=== PATIENT | female | born 1995 | race Caucasian/White ===

== ENCOUNTER 2019-04-14 13:02 | Outpatient (REF) | payer MEDICAID, SELFPAY ==
[2019-04-15 15:01] LABS: Chlamydia Result Negative; GC Result Negative; Specimen Description CERVIX
== END 2019-04-14 13:22 ==
LOC: LBN 13:02
PROVIDERS: Visit Provider Nurse Practitioner Family
DX: R10.2 Pelvic and perineal pain (principal); Z11.3 Encounter for screening for infections with a predominantly sexual mode of transmission
CPT/HCPCS: 87491; 87591; 87086

== ENCOUNTER 2019-07-07 12:01 | Outpatient (CLI) | payer MEDICAID, SELFPAY ==
[2019-07-07 12:22] LABS: Abs Immature Grans 0.01 k/cumm (0.0-0.09); Absolute Basophil Count 0.04 k/cumm (0.0-0.2); Absolute Eosinophil Count 0.16 k/cumm (0.0-0.7); Absolute Lymphocyte Count 2.63 k/cumm (1.2-3.4); Absolute Monocyte Count 0.96 k/cumm (0.11-0.7); Absolute Neutrophil Count 5.81 k/cumm (1.2-6.7); Basophils % 0.4; Eosinophils % 1.7; HCT 39.8 % (36.0-46.0); HGB 13.8 g/dL (12.0-15.5); Immature Grans % 0.1; Lymphocytes % 27.4; Mean Corp. HGB Concentration 34.7 g/dL (32.0-36.0); Mean Corpuscular Hemoglobin 32.3 pg (27.0-33.0); Mean Corpuscular Volume 93.2 fL (80-95); Mean Platelet Volume 8.9 fL (8.0-11.0); Neutrophils % 60.4; Platelet Count 343 x1000/uL (130-400); RBC 4.27 m/cumm (4.00-5.20); RBC Distribution Width 11.4 % (11.7-14.6); White Blood Cell Count 9.61 k/cumm (4.4-10.8)
[2019-07-08 11:07] LABS: Hepatitis B Surface Ag Negative (NEGAT)
[2019-07-08 11:36] LABS: HIV-1/2 Ag & Ab Screen Negative (NEGAT); Hepatitis C Ab w Rflx HCV PCR Negative (NEGAT)
[2019-07-08 16:37] LABS: Chlamydia Result Negative (Negative); GC Result Negative (Negative); Specimen Description ENDOCERVICAL
[2019-07-08 16:49] LABS: Syphilis Total Ab w/Reflex Nonreactive (Nonreactive)
== END 2019-07-07 12:21 ==
PROVIDERS: Visit Provider Nurse Practitioner Family
DX: R59.0 Localized enlarged lymph nodes (principal); Z11.3 Encounter for screening for infections with a predominantly sexual mode of transmission; Z11.4 Encounter for screening for human immunodeficiency virus [HIV]; Z11.59 Encounter for screening for other viral diseases
CPT/HCPCS: 36415; 86803; 87340; 87389; 87491; 87591; 85025; 86780

== ENCOUNTER 2019-07-11 10:28 | Outpatient (CLI) | payer MEDICAID, SELFPAY ==
--- NOTE | 2019-07-11 10:58 | DI.US_ITS ---
EXAM: US SOFT TISS EXTREMITY/GROIN CLINICAL HISTORY: LYMPHADENOPATHY, R59.1, ENLARGED TENDER LT INGUINAL NODE, PAIN WITH WALKING,? absc ess TECHNIQUE: Ultrasound performed using standard protocol. COMPARISON: No exams were available for comparison FINDINGS: There are enlarged lymph nodes in the left groin region. The largest measures 2.6 cm in greatest di mension. The nodes are hyperemic and show loss of the central fatty hilum. The findings may represe nt reactive lymph nodes related to inflammation or infection. Malignancy cannot be excluded. Correl ation is recommended.
== END 2019-07-11 10:48 ==
PROVIDERS: PCP Nurse Practitioner Family; Visit Provider Nurse Practitioner Family
DX: R59.0 Localized enlarged lymph nodes (principal); M79.605 Pain in left leg; R26.2 Difficulty in walking, not elsewhere classified
CPT/HCPCS: 76882

== ENCOUNTER 2019-08-19 13:03 | Outpatient (REF) | payer MEDICAID, SELFPAY ==
[2019-08-19 14:06] LABS: Bilirubin Negative (Negative); Blood Negative (Negative); Clarity Sl Cloudy (Clear); Glucose Negative (Negative); Ketones Negative (Negative); Leukocyte Esterase Trace (Negative); Nitrite Negative (Negative); Specific Gravity 1.015 (1.005-1.025); Urobilinogen 0.2 EU/dL (Up TO 0.2)
[2019-08-19 14:29] LABS: Bacteria Moderate HPF (Negative); Crystals Negative HPF (Negative); Epithelial Cells Many HPF (Negative); Mucus Moderate (Negative); WBC >50 HPF (0-5)
[2019-08-19 14:30] LABS: C & S Indicated? C&S Done As Ordered; Casts Negative LPF (Negative)
== END 2019-08-19 13:23 ==
LOC: LBN 13:03
PROVIDERS: PCP Nurse Practitioner Family; Visit Provider Advanced Practice Midwife
DX: R30.0 Dysuria (principal)
CPT/HCPCS: 81003; 81015; 87086

== ENCOUNTER 2019-09-20 01:46 | Emergency (ER) | payer MEDICAID, SELFPAY ==
[2019-09-20 01:49] VITALS: BP 130/76; PULSE 102; RESP 16; TEMP 36.6; O2SAT 100
--- NOTE | 2019-09-20 01:59 | NUR.NOTE ---
Pt reports she is approx 10 weeks and has vag bleeding beginning at 220 on 09/19/2019. reports blood, no clots. called OB, told to come to ED for eval. US done last week, pt reports FHR 165. US done by MD Nathan, shows FHR 167.
--- NOTE | 2019-09-20 02:06 | W.ED.GENAD ---
Discharge Plan Disposition Patient Disposition: HOME Condition: Stable Discharge Details Chief Complaint: ENLISTED AIRCREW/AERIAL OBSERVER/GUNNER Clinical Impression: Threatened miscarriage Primary Care Provider: Corinne Malave ED Provider: Hu Nathan Home Meds and New Rx's Prescriptions: No Action Plus 29 mg iron- 1 mg tablet 1 tab PO DAILY Qty: 90 RF: 4 nicotine (polacrilex) [Nicorette] 4 mg gum 4 mg BC Q2H Qty: 50 RF: 4 ondansetron HCl 8 mg tablet 8 mg PO Q8H Qty: 20 RF: 1 Discharge Instructions Instructions: Threatened Miscarriage (ED) Additional Instructions: At this time you are having a threatened miscarriage. The only time will tell if this continues. It is important to avoid any significant vigorous activity, sexual intercourse, or any trauma or irritation to the pelvic region. If the miscarriage does continue I would expect to see clots, and continued bleeding, however if the bleeding continues past 48 hours, you have worsening pain, and the bleeding becomes more severe, there is concern that there could be retained products of conception. This would indicate a need for immediate return. Please take Tylenol as needed for pain. Please drink plenty of fluids. Please contact your OB doctor in the morning. If you notice any worsening of your symptoms, or any new symptoms such as vomiting, diarrhea, fever, chills, shortness of breath, chest pain, numbness, weakness, or fainting , please return immediately to the emergency department for reevaluation. As always, it was a pleasure participating in your medical care today. Referrals: ENLISTED AIRCREW/AERIAL OBSERVER/GUNNER,[facility] [OTHER] - Medical Decision Making This is a 24-year-old female who is a G1, P0 currently 10 weeks who presents for vaginal bleeding. Bleeding started 4 hours ago. Is been associated with mild cramping. No clots. Exam demonstrates a closed cervix, minimal bleeding. Vital signs stable. Blood pressure stable. Bedside ultrasound demonstrates intact fetus, heart rate of 167 noted on M-mode, fetus is intrauterine. We will lora Rh status. Currently patient is classified as a threatened miscarriage. Will recommend close OB follow-up. No current indication for D&C or transfusion. 3 AM Rh status is Rh+. Patient remained stable. Bleeding is somewhat decreased. Recommend continued close follow-up on an outpatient basis, Tylenol as needed, pelvic rest. Diagnosis threatened miscarriage. I have extensively reviewed the treatment plan and discharge instructions with the patient and their family. I have addressed all patient concerns at this time. The patient and family was made aware of what symptoms to monitor for that would warrant a return to the emergency department. Discussed the plan with the patient and family, they demonstrate verbal understanding and agreement with our assessment and plan at this time. HPI General Date/Time Provider Initiated Documentation: 09/20/19 01:46. HPI Narrative: This is a 24-year-old female who is a G1, P0 currently 9 weeks with an unknown Rh status who presents today for vaginal bleeding. She recently had a ultrasound which demonstrated a normal fetus, normal heart rate. 4 hours ago she developed mild pelvic cramping and small amounts of vaginal bleeding. No clots. Blood was maroon. She does not have any pads, but does note that she has been staining her underwear. Difficult to confirm or determine actual amount of blood loss. Patient denies any nausea or vomiting. She denies any recent sexual trauma. No other complaints at this time. Related Data Home Medications Medication Instructions Recorded Confirmed nicotine (polacrilex) 4 mg gum 4 mg BC Q2H #50 each 08/19/19 09/20/19 vitamins with calcium 1 tab PO DAILY #90 tab 08/19/19 09/20/19 no.72-iron 29 mg-folic acid 1 mg tablet ondansetron HCl 8 mg tablet 8 mg PO Q8H #20 tab 08/30/19 09/20/19 Previous Rx's Medication Instructions Recorded nicotine (polacrilex) 4 mg gum 4 mg BC Q2H #50 each 08/19/19 vitamins with calcium 1 tab PO DAILY #90 tab 08/19/19 no.72-iron 29 mg-folic acid 1 mg tablet ondansetron HCl 8 mg tablet 8 mg PO Q8H #20 tab 08/30/19 Allergies Allergy/AdvReac Type Severity Reaction Status Date / Time amoxicillin Allergy Verified 09/12/19 15:04 oxycodone Allergy Verified 09/12/19 15:04 Penicillins Allergy Verified 09/12/19 15:04 acetaminophen [From Vicodin] AdvReac Severe vomiting Verified 09/12/19 15:04 hydrocodone [From Vicodin] AdvReac Severe vomiting Verified 09/12/19 15:04 General Stated Complaint: ENLISTED AIRCREW/AERIAL OBSERVER/GUNNER TEJAS: 3 Review of Systems All systems reviewed & are unremarkable except as noted in HPI and below PFSH Social History Smoking/Tobacco Use Status: Current-Occasional Tobacco: How many years used: 2 Quit status: quit date established Drug use: Never Do you feel safe at home: Yes Do you feel safe in your relationship?: Yes Female Reproductive History Menstrual control method: condoms History History 2 Para 0 Hx # Term Pregnancies Multiple births Hx # Pregnancies Ectopic pregnancies AB induced 2 Hx Number of Living Children AB spontaneous Exam Narrative Exam Narrative: 1.Const: Well-nourished, Well-developed, appearing stated age 2.Eyes: PERRL, no conjunctival injection, and symmetrical lids. 3.ENT: Atraumatic external nose and ears. Moist MM. Neck: Symmetric, trachea midline, No thyromegaly. 4.CVS: +S1/S2, No murmurs or gallops. Peripheral pulses 2+ and equal in all extremities. Brisk capillary refill in all extremities. 5.RESP: Unlabored respiratory effort. Clear to auscultation bilaterally. No wheezes rales or rhonchi 6.GI: Soft, Nontender/Nondistended, No hepatosplenomegaly. No guarding or rebound. Minimal suprapubic tenderness and cramping. Vaginal exam was performed with female nurse Lissett at bedside, vaginal exam demonstrates a closed cervix. Minimal bleeding. Blood is maroon color. 7.MSK: Normocephalic/Atraumatic, Extremities w/o deformity or ttp No cyanosis or clubbing, Normal movement of all extremities 8.Skin: Warm, Dry. No rashes or lesions. 9.Neuro: cook fruit II-XII grossly intact. Sensation grossly intact, no focal neurologic deficits. 10.Psych: (AAO) x3. Appropriate mood and affect Course Vital Signs Vital signs: Vital Signs Temperature 36.6 C 09/20/19 01:49 Pulse 102 H 09/20/19 01:49 Respiratory Rate 16 09/20/19 01:49 Blood Pressure 130/76 09/20/19 01:49 Pulse Oximetry 100 09/20/19 01:49 Temperature 36.6 C 09/20/19 01:49 Temperature Source Skin 09/20/19 01:49 Pulse 102 H 09/20/19 01:49 Respiratory Rate 16 09/20/19 01:49 Respiratory Effort 09/20/19 01:54 Blood Pressure 130/76 09/20/19 01:49 Blood Pressure Position Sitting 09/20/19 01:49 Pulse Oximetry 100 09/20/19 01:49 Oxygen Delivery Method Room Air 09/20/19 01:49 Oxygen Flow Rate 0 09/20/19 01:49
[2019-09-20 03:14] VITALS: PULSE 98; RESP 16; O2SAT 99
== END 2019-09-20 03:15 | disposition home or self-care (01) ==
PROVIDERS: Emergency Provider Student in an Organized Health Care Education/Training Program; PCP Nurse Practitioner Family
DX: O20.0 Threatened abortion (principal); Z3A.10 10 weeks gestation of pregnancy; Z67.20 Type B blood, Rh positive
CPT/HCPCS: 86900; 86901; 99282

== ENCOUNTER 2019-09-22 09:56 | Outpatient (CLI) | payer MEDICAID, SELFPAY ==
[2019-09-22 12:51] LABS: Kit/Specimen SENT
[2019-09-22 13:02] LABS: Abs Immature Grans 0.03 k/cumm (0.0-0.09); Absolute Basophil Count 0.03 k/cumm (0.0-0.2); Absolute Eosinophil Count 0.03 k/cumm (0.0-0.7); Absolute Lymphocyte Count 2.77 k/cumm (1.2-3.4); Absolute Monocyte Count 0.66 k/cumm (0.11-0.7); Absolute Neutrophil Count 10.01 k/cumm (1.2-6.7); Basophils % 0.2; Eosinophils % 0.2; HCT 41.5 % (36.0-46.0); HGB 14.7 g/dL (12.0-15.5); Immature Grans % 0.2 %; Lymphocytes % 20.5; Mean Corp. HGB Concentration 35.4 g/dL (32.0-36.0); Mean Corpuscular Hemoglobin 32.2 pg (27.0-33.0); Mean Corpuscular Volume 90.8 fL (80-95); Monocytes % 4.9; Platelet Count 453 x1000/uL (130-400); RBC 4.57 m/cumm (4.00-5.20); RBC Distribution Width 11.6 % (11.7-14.6); White Blood Cell Count 13.53 k/cumm (4.4-10.8)
--- NOTE | 2019-09-22 13:26 | DI.US_ITS ---
EXAM: US OB 1ST TRIMESTER CLINICAL HISTORY: VAGINAL SPOTTING/CRAMPING,Z34.90, N93.9, WET READING, TO [facility] AFTER TECHNIQUE: Ultrasound performed using standard protocol. COMPARISON: US SOFT TISS EXTREMITY/GROIN from 07/11/2019 FINDINGS: Ob ultrasound was performed utilizing 1st trimester protocol. There is a single viable intrauterine gestation with crown-rump length measurements consistent with gestational age of 10 weeks 6 days. Fe heaven cardiac activity was observed at a rate of 155 BPM.. The EDC is 04/13/2020. There is [address] in diameter presumed left corpus luteum cyst. IMPRESSION:
[2019-09-22 14:03] LABS: FREE T4 1.22 ng/dL (0.76-1.46); TSH 1.64 uIU/mL (0.36-3.74)
[2019-09-23 09:20] LABS: Hepatitis C Ab w Rflx HCV PCR Negative (Negative)
[2019-09-23 10:58] LABS: HIV-1/2 Ag & Ab Screen Negative (Negative); Hepatitis B Surface Ag Negative (Negative)
[2019-09-23 11:29] LABS: Varicella IgG Antibody Negative (See Note)
[2019-09-23 13:30] LABS: Rubella IgG Ab (UVM) Positive (See Note)
[2019-09-23 14:47] LABS: Syphilis Total Ab w/Reflex Nonreactive (Nonreactive)
== END 2019-09-22 10:16 ==
PROVIDERS: PCP Nurse Practitioner Family; Visit Provider Advanced Practice Midwife
DX: N93.9 Abnormal uterine and vaginal bleeding, unspecified (principal); Z34.91 Encounter for supervision of normal pregnancy, unspecified, first trimester; Z83.49 Family history of other endocrine, nutritional and metabolic diseases; Z36.89 Encounter for other specified antenatal screening; Z3A.10 10 weeks gestation of pregnancy
CPT/HCPCS: 36415; 86787; 86803; 86850; 86900; 86901; 87340; 87389; 76801; 84439; 84443; 85025; 86762; 86780

== ENCOUNTER 2019-09-22 14:27 | Outpatient (REF) | payer MEDICAID, SELFPAY ==
[2019-09-22 13:59] LABS: *AMPHETAMINES SCREEN URINE Negative (Negative); *BARBITURATES SCREEN URINE Negative (Negative); *BENZODIAZEPINES SCREEN URINE Negative (Negative); Cannabinoids THC POSITIVE (Negative); Cocaine Screen,Urine Negative (Negative); METHADONE URINE SCREEN Negative (Negative); OPIATES URINE SCREEN Negative (Negative)
[2019-09-22 14:02] LABS: Tricyclic Antidepressants Negative (Negative)
[2019-09-25 10:19] LABS: Buprenorphine Negative
== END 2019-09-22 14:47 ==
LOC: LBN 14:27
PROVIDERS: PCP Nurse Practitioner Family; Visit Provider Advanced Practice Midwife
DX: Z34.91 Encounter for supervision of normal pregnancy, unspecified, first trimester (principal)
CPT/HCPCS: 80307

== ENCOUNTER 2019-10-09 14:52 | Outpatient (REF) | payer MEDICAID, SELFPAY ==
[2019-10-10 14:53] LABS: Chlamydia Result Negative (Negative); GC Result Negative (Negative)
== END 2019-10-09 15:12 ==
LOC: LBN 14:52
PROVIDERS: PCP Nurse Practitioner Family; Visit Provider Advanced Practice Midwife
DX: Z34.91 Encounter for supervision of normal pregnancy, unspecified, first trimester (principal); N39.0 Urinary tract infection, site not specified; Z11.3 Encounter for screening for infections with a predominantly sexual mode of transmission
CPT/HCPCS: 87491; 87591; 87086

== ENCOUNTER 2019-11-14 02:05 | Outpatient (CLI) | payer MEDICAID, SELFPAY ==
--- NOTE | 2019-11-14 13:30 | DI.US_ITS ---
EXAM: US OB 2-3 TRIMESTER CLINICAL HISTORY: 18-week anatomy survey, Z34.90. TECHNIQUE: Transabdominal obstetrical ultrasound performed. COMPARISON: US OB 1ST TRIMESTER from 09/22/2019 FINDINGS: There is a single living intrauterine gestation. Estimated sonographic age is 18 weeks 5 days. No f etal or placental abnormalities are identified. IMPRESSION: 1. Single live intrauterine gestation as above. 2. Normal anatomic survey. DATA REPOSITORY:
== END 2019-11-14 02:25 ==
PROVIDERS: PCP Nurse Practitioner Family; Visit Provider Advanced Practice Midwife
DX: Z34.92 Encounter for supervision of normal pregnancy, unspecified, second trimester (principal); Z3A.18 18 weeks gestation of pregnancy
CPT/HCPCS: 76805

== ENCOUNTER 2019-11-14 13:19 | Outpatient (CLI) | payer MEDICAID, SELFPAY ==
[2019-11-17 11:50] LABS: AFP 72.2 ng/mL; GA used in risk estimate Dates estimate; IVF Pregnancy No; Initial or repeat testing Initial testing; Insulin dependent diabetes No; Maternal Weight 122 lbs; Number of Fetuses 1; Physician Phone Number 802-748-7300; Prev Pregnancy w/NTD No; RECOMMENDED FOLLOW UP None.; Results Summary Normal risk
== END 2019-11-14 13:39 ==
PROVIDERS: PCP Nurse Practitioner Family; Visit Provider Advanced Practice Midwife
DX: Z34.92 Encounter for supervision of normal pregnancy, unspecified, second trimester (principal); Z36.89 Encounter for other specified antenatal screening
CPT/HCPCS: 36415; 82105

== ENCOUNTER 2020-01-23 10:44 | Outpatient (REF) | payer MEDICAID, SELFPAY ==
[2020-01-23 11:22] LABS: Glucose,1 Hr (Glucola) 109 mg/dL (80-140); HCT 36.1 % (36.0-46.0); HGB 12.4 g/dL (12.0-15.5); Mean Corp. HGB Concentration 34.3 g/dL (32.0-36.0); Mean Corpuscular Hemoglobin 32.5 pg (27.0-33.0); Mean Corpuscular Volume 94.8 fL (80-95); Mean Platelet Volume 9.5 fL (8.0-11.0); Platelet Count 397 x1000/uL (130-400); RBC 3.81 m/cumm (4.00-5.20); RBC Distribution Width 11.7 % (11.7-14.6); White Blood Cell Count 16.24 k/cumm (4.4-10.8)
== END 2020-01-23 11:04 ==
LOC: LBN 10:44
PROVIDERS: PCP Nurse Practitioner Family; Visit Provider Advanced Practice Midwife
DX: Z34.93 Encounter for supervision of normal pregnancy, unspecified, third trimester (principal)
CPT/HCPCS: 82950; 85027

== ENCOUNTER 2020-03-16 01:44 | Outpatient (CLI) | payer MEDICAID, SELFPAY ==
--- NOTE | 2020-03-16 14:30 | DI.US_ITS ---
EXAM: US OB YEISON WEIGHT CLINICAL HISTORY: size greater than dates, , Z34.90 TECHNIQUE: Ultrasound performed using standard protocol. COMPARISON: US US OB 2-3 TRIMESTER from 11/14/2019 FINDINGS: Ob ultrasound was performed utilizing 3rd trimester protocol. biometry is consistent with gest ational age of 36 weeks 3 days and an EDC of April 10, 2020. Estimated weight is 2930 grams which is at the 70th percentile for predicted gestational age. Placenta is anterior with no evidence of placenta previa. heart rate noted at 139 BPM. The am niotic fluid index is 21 and there is visually a mildly increased quantity of amniotic fluid. IMPRESSION: DATA REPOSITORY:
== END 2020-03-16 02:04 ==
PROVIDERS: PCP Nurse Practitioner Family; Visit Provider Advanced Practice Midwife
DX: O26.843 Uterine size-date discrepancy, third trimester (principal); Z3A.36 36 weeks gestation of pregnancy
CPT/HCPCS: 76816

== ENCOUNTER 2020-03-22 16:40 | Outpatient (REF) | payer MEDICAID, SELFPAY ==
[2020-03-22 17:12] LABS: *AMPHETAMINES SCREEN URINE Negative (Negative); *BARBITURATES SCREEN URINE Negative (Negative); *BENZODIAZEPINES SCREEN URINE Negative (Negative); Cannabinoids THC POSITIVE (Negative); Cocaine Screen,Urine Negative (Negative); METHADONE URINE SCREEN Negative (Negative); OPIATES URINE SCREEN Negative (Negative)
[2020-03-22 17:13] LABS: Tricyclic Antidepressants Negative (Negative)
[2020-03-25 12:27] LABS: Buprenorphine Negative; Norbuprenorphine Negative
== END 2020-03-22 17:00 ==
LOC: LBN 16:40
PROVIDERS: PCP Nurse Practitioner Family; Visit Provider Advanced Practice Midwife
DX: Z34.90 Encounter for supervision of normal pregnancy, unspecified, unspecified trimester (principal)
CPT/HCPCS: 80307; 87081

== ENCOUNTER 2020-04-01 13:57 | Inpatient (IN) | payer MEDICAID, SELFPAY ==
[2020-04-01 14:49] LABS: Abs Immature Grans 0.14 10^3/uL (0.0-0.06); Absolute Basophil Count 0.05 10^3/uL (0.0-0.2); Absolute Eosinophil Count 0.09 10^3/uL (0.0-0.7); Absolute Lymphocyte Count 2.17 10^3/uL (1.2-3.4); Absolute Monocyte Count 1.03 10^3/uL (0.1-0.8); Absolute Neutrophil Count 9.51 10^3/uL (1.2-6.7); Basophils % 0.4; Eosinophils % 0.7; HCT 31.2 % (36.0-46.0); HGB 10.6 g/dL (11.2-15.7); Immature Grans % 1.1; Lymphocytes % 16.7; MCH 30.5 pg (27.0-33.0); MCV 89.7 fL (80-95); MPV 9.3 fL (8.0-11.0); Monocytes % 7.9; Neutrophils % 73.2; Platelet Count 335 10^3/uL (130-400); RBC 3.48 10^6/uL (3.93-5.22); RDW 11.8 % (11.7-14.6); RDW-SD 37.6 fL; WBC 12.99 10^3/uL (4.4-10.8)
[2020-04-01] MEDS: Normal Saline Flush 10 ML SYR IVP (16:15)
[2020-04-02] MEDS: Lactated Ringers 1,000 ML 125 ML IV ×2 (00:19→05:46)
[2020-04-02] MEDS: Normal Saline Flush 10 ML SYR IVP (00:26)
[2020-04-02] MEDS: Oxytocin/Normal Saline 30 UNITS/500 ML BAG IV (01:57)
[2020-04-02] MEDS: Bupivacaine 0.25% Pres-Free 30 ML VIAL (05:24)
[2020-04-02] MEDS: fentaNYL 100 MCG/2 ML VIAL (05:41)
[2020-04-02] MEDS: FentaNYL/ROPIvacaine 2 mcg/ml and 0.1% 200 ML CADD Cassette EP (05:45)
[2020-04-02 08:26] LABS: COVID-19 RT-PCR UVMMC Result Negative (Negative)
[2020-04-02] MEDS: Ibuprofen 600 MG TAB PO ×2 (17:15→23:52)
[2020-04-03] MEDS: Ibuprofen 600 MG TAB PO ×2 (07:24→18:17)
[2020-04-03 18:16] VITALS: BP 123/84; PULSE 92; RESP 16; TEMP 36.7; O2SAT 99
[2020-04-03] MEDS: Docusate Sodium 100 MG CAP PO (18:26)
== END 2020-04-03 19:49 | disposition home or self-care (01) | DRG 806 ==
PROVIDERS: Admitting Provider Advanced Practice Midwife; PCP Nurse Practitioner Family; Visit Provider Advanced Practice Midwife
DX: O42.02 Full-term premature rupture of membranes, onset of labor within 24 hours of rupture (principal); O99.324 Drug use complicating childbirth; Z37.0 Single live birth; O99.824 Streptococcus B carrier state complicating childbirth; O99.344 Other mental disorders complicating childbirth; F41.9 Anxiety disorder, unspecified; Z88.0 Allergy status to penicillin; Z3A.38 38 weeks gestation of pregnancy; Z30.013 Encounter for initial prescription of injectable contraceptive; Z67.20 Type B blood, Rh positive; F12.90 Cannabis use, unspecified, uncomplicated
CPT/HCPCS: 86850; 86900; 86901; U0003; 80202; 85025; J0595; J1050; J3010; J3370

== ENCOUNTER 2020-04-04 13:25 | Outpatient (CLI) | payer MEDICAID, SELFPAY ==
[2020-04-04] MEDS: Varicella Virus Vaccine (Live) 0.5 ML SC (13:59)
== END 2020-04-04 13:45 ==
PROVIDERS: PCP Nurse Practitioner Family; Visit Provider Advanced Practice Midwife
DX: Z23 Encounter for immunization (principal)
CPT/HCPCS: 90471

== ENCOUNTER 2021-03-05 05:54 | Emergency (ER) | payer MEDICAID, SELFPAY ==
[2021-03-05 05:56] VITALS: BP 123/91; PULSE 87; RESP 16; TEMP 37.1; O2SAT 100
--- NOTE | 2021-03-05 06:08 | ED.GENADUL_ITS ---
Discharge Plan Disposition Patient Disposition: HOME Condition: Good Discharge Details Clinical Impression: Dental caries Primary Care Provider: Corinne Malave ED Provider: Hu Nathan Home Meds and New Rx's Prescriptions: New clindamycin HCl [Cleocin HCl] 150 mg capsule 450 mg PO TID 7 Days Qty: 63 RF: 0 Continued medroxyprogesterone [Depo-Provera] 150 mg/mL syringe 150 mg IM [id number] Qty: 1 RF: 5 sertraline 25 mg tablet 25 mg PO DAILY Qty: 30 RF: 2 Discharge Instructions Instructions: Dental Caries (ED) Additional Instructions: At this time you have evidence of a dental infection. Please antibiotics as directed. Please make sure you are taking a yogurt with live culture like activia to prevent any diarrhea. If you notice any worsening of your symptoms, or any new symptoms such as vomiting, diarrhea, fever, chills, shortness of breath, chest pain, numbness, weakness, or fainting , please return immediately to the emergency department for reevaluation. Please follow up with your primary care provider as soon as possible for reassessment and reevaluation. As always, it was a pleasure participating in your medical care today. Referrals: Corinne Malave [Primary Care Provider] - Medical Decision Making Pleasant 25-year-old female presents for dental pain in the right lower tooth. Patient states she has had issues with this tooth for the last 2 years however over the last week it is notably worsened. She does have a dentist already that she is seeing for this. She denies fever or chills. She has been taking Tylenol and Motrin. No other complaints at this time. No difficulty s wallowing, drinking or controlling secretions. She denies any swelling. Exam demonstrates notable dental caries in the posterior right lower molars. No evidence of other swelling, abscess or other abnormality. No fever chills or tachycardia. Vital signs stable. Symptoms consistent with pulpitis and dental caries. Will give antibiotic clindamycin for treatment as she does have a notable penicillin allergy. Recommend continue Tylenol and Motrin. Did offer dental block however patient refused this. Recommend close follow-up with dentist. I have extensively reviewed the treatment plan and discharge instructions with the patient. I have addressed all patient concerns at this time. The patient was made aware of what symptoms to monitor for that would warrant a return to the emergency department. Discussed the plan with the patient, they demonstrate verbal understanding and agreement with our assessment and plan at this time. The documentation in this chart was dictated using [employer] dictation software. Please excuse any dictation errors. HPI General Date/Time Provider Initiated Documentation: 03/05/21 06:01 . HPI Narrative: Pleasant 25-year-old female presents for dental pain in the right lower tooth. Patient states she has had issues with this tooth for the last 2 years however over the last week it is notably worsened. She does have a dentist already that she is seeing for this. She denies fever or chills. She has been taking Tylenol and Motrin. No other complaints at this time. No difficulty swallowing, drinking or controlling secretions. She denies any swelling. Related Data Home Medications Medication Instructions Recorded Confirmed medroxyprogesterone 150 mg/mL 150 mg IM [id number] #1 ml 12/28/20 03/05/21 intramuscular syringe sertraline 25 mg tablet 25 mg PO DAILY #30 tab 03/03/21 03/05/21 clindamycin HCl [Cleocin HCl] 450 mg PO TID 7 Days #63 cap 03/05/21 Previous Rx's Medication Instructions Recorded medroxyprogesterone 150 mg/mL 150 mg IM [id number] #1 ml 12/28/20 intramuscular syringe sertraline 25 mg tablet 25 mg PO DAILY #30 tab 03/03/21 clindamycin HCl [Cleocin HCl] 450 mg PO TID 7 Days #63 cap 03/05/21 Allergies Allergy/AdvReac Type Severity Reaction Status Date / Time amoxicillin Allergy hives, Verified 03/05/21 06:01 throat swelling oxycodone Allergy Verified 03/05/21 06:01 Penicillins Allergy hives, Verified 03/05/21 06:01 throat swelling acetaminophen [From Vicodin] AdvReac Severe vomiting Verified 03/05/21 06:01 hydrocodone [From Vicodin] AdvReac Severe vomiting Verified 03/05/21 06:01 Bees Allergy Intermediate Uncoded 03/05/21 06:01 General Stated Complaint: DentalOral TEJAS: 5 Review of Systems All systems reviewed & are unremarkable except as noted in HPI and below [facility] Medical History Anxiety medications in the past, discontinued due to side effects. counseling x 4 years Anxiety History of ovarian cyst Marijuana smoker Sinus headache Tobacco dependence Uses contraception Couple until 08/2021 change to Josey. 12/2020 resumed Depo Family History Father Diabetes Hyperlipidemia Grandmother Lung cancer Maternal - Paternal Cousin Diabetes type 1 Paternal Grandfather Diabetes Type 1 Maternal Grandmother Hyperthyroidism Social History Smoking/Tobacco Use Status: Current-Occasional Tobacco Type: cigarettes Tobacco: How many years used: 2 Quit status: quit date established Smoking risk assessment performed?: Yes Alcohol Intake: current Alcohol Intake frequency: 0-2 drinks per day Alcohol type: wine Drug use: Daily Substance use type: marijuana Details: marijuana, using for nausea in . Reports no longer using. Do you feel safe at home: Yes Do you feel safe in your relationship?: Yes Female Reproductive History Menstrual control method: condoms History History 3 Para 1 Hx # Term Pregnancies 1 Multiple births 0 Hx # Pregnancies 0 Ectopic pregnancies 0 AB induced 2 Hx Number of Living Children 1 AB spontaneous 0 Past Pregnancies Del. Date GA/Weeks # Outcome Route Wgt Sex Labor Lgth Anesthes ia Location [facility] 04/02/20 No Successful vaginal 3316.894 g Male 21 hours, per patient regional other Sam Laurent Delivery Date: 04/02/20 Pt received epidural, with pitocin to augment labor. Jarred. Intact perineum. [place] Gallegos Exam Narrative Exam Narrative: 1.Const: Well-nourished, Well-developed, appearing stated age 2.Eyes: PERRL, no conjunctival injection, and symmetrical lids. 3.ENT: Atraumatic external nose and ears. Moist MM. Neck: Symmetric, trachea midline, No thyromegaly. Notable dental caries in the right lower posterior molars. No evidence of periapical abscess. No evidence of Ludewig's angina, tonsillar swelling, oropharyngeal compromise. 4.CVS: +S1/S2, No murmurs or gallops. Peripheral pulses 2+ and equal in all extremities. Brisk capillary refill in all extremities. 5.RESP: Unlabored respiratory effort. Clear to auscultation bilaterally. No wheezes rales or rhonchi 6.GI: Soft, Nontender/Nondistended, No hepatosplenomegaly. No guarding or rebound. 7.MSK: Normocephalic/Atraumatic, Extremities w/o deformity or ttp No cyanosis or clubbing, Normal movement of all extremities 8.Skin: Warm, Dry. No rashes or lesions. 9.Neuro: house detective II-XII grossly intact. Sensation grossly intact, no focal neurolog ic deficits. 10.Psych: (AAO) x3. Appropriate mood and affect Course Vital Signs Vital signs: Vital Signs Temperature 37.1 C 03/05/21 05:56 Pulse 87 03/05/21 05:56 Respiratory Rate 16 03/05/21 05:56 Blood Pressure 123/91 H 03/05/21 05:56 Pulse Oximetry 100 03/05/21 05:56 Temperature 37.1 C 03/05/21 05:56 Temperature Source Skin 03/05/21 05:56 Pulse 87 03/05/21 05:56 Respiratory Rate 16 03/05/21 05:56 Respiratory Effort Non-Labored 03/05/21 06:01 Blood Pressure 123/91 H 03/05/21 05:56 Blood Pressure Position Sitting 03/05/21 05:56 Pulse Oximetry 100 03/05/21 05:56 Oxygen Delivery Method Room Air 03/05/21 05:56 Oxygen Flow Rate 0 03/05/21 05:56 Pain Level 9 03/05/21 06:02
[2021-03-05] MEDS: Clindamycin 150 MG CAP, 12 CAPS/BTL 450 MG PO (06:18)
== END 2021-03-05 06:20 | disposition home or self-care (01) ==
LOC: ER 06:13
PROVIDERS: Emergency Provider Student in an Organized Health Care Education/Training Program; PCP Nurse Practitioner Family
DX: K02.9 Dental caries, unspecified (principal)
CPT/HCPCS: 99283

== ENCOUNTER 2021-09-09 16:09 | Outpatient (REF) | payer MEDICAID, SELFPAY ==
--- NOTE | 2021-09-09 15:40 | PAPFT_PTH ---
PATIENT: Lily Bennett LOC: [facility] U#:[id number] AGE/SX: 26/F ROOM: RE09/09/[address]: COCO Maza : 1995 BED: DIS: 09/09/2021 SPEC #: [id number] RECD: 09/09/21 18:23 STATUS: NIURKA REQ #: [id number] SHANTI: 09/09/21 15:[address]: Sariah Porras DEPT: [facility] Cytology RECD BY: Rica Alvarez ENTERED: 09/09/21 18:24 SP TYPE: PAPFT OTHR DR: Corinne Malave Tissues: 1 - CX/ENDOCX FOR PAP SMEARS Procedures: PAP THIN PREP/[facility] Screening Comments: [id number]
== END 2021-09-09 16:10 | disposition home or self-care (01) ==
LOC: LBN 16:09
PROVIDERS: PCP Nurse Practitioner Family; Visit Provider Nurse Practitioner Family
DX: Z12.4 Encounter for screening for malignant neoplasm of cervix (principal)
CPT/HCPCS: 88142

== ENCOUNTER 2021-10-24 14:42 | Emergency (ER) | payer MEDICAID, SELFPAY ==
[2021-10-24 15:15] VITALS: BP 134/85; PULSE 89; RESP 16; O2SAT 99
--- NOTE | 2021-10-24 16:00 | DI.RAD_ITS ---
Exam(s) XR KNEE RT 3V AP,LAT,DEMARIO EXAM: XR KNEE RT 3V AP,LAT,DEMARIO CLINICAL HISTORY: R knee pain, r/o fx/effusion. TECHNIQUE: 2D digital imaging was performed. COMPARISON: CR RIGHT KNEE COMPLETE from 11/13/2017 FINDINGS: There is no evidence of fracture or joint effusion. Previously described joint effusion seen on x-ra ys November 2017 no longer seen. The joint exhibits normal height. No degenerative changes. No fractu res. No osteophytes. IMPRESSION: No significant radiographic findings. DATA REPOSITORY: RADIATION DOSE DELIVERED:
--- NOTE | 2021-10-24 16:09 | W.ED.GENAD ---
Discharge Plan Disposition Patient Disposition: HOME Condition: Stable Discharge Details Clinical Impression: Right knee sprain, Chronic pain of right knee Primary Care Provider: Corinne Malave ED Provider: Raya Edmondson Home Meds and New Rx's Prescriptions: Continued loratadine 10 mg tablet 10 mg PO DAILY 0RF medroxyprogesterone [Depo-Provera] 150 mg/mL syringe 150 mg IM ONCE Qty: 1 0RF medroxyprogesterone [Depo-Provera] 150 mg/mL syringe 150 mg IM [id number] Qty: 1 5RF sertraline 25 mg tablet 50 mg PO DAILY 0RF Rx Instructions: Patient is now taking 50 mg meloxicam 15 mg Tablet 15 mg PO DAILY 0RF omeprazole 10 mg Capsule,Delayed Release(Dr/Ec) 10 mg PO DAILY 0RF Discharge Instructions Instructions: Knee Sprain (ED), Knee Pain (ED) Additional Instructions: Rest, ice, and elevate the affected area as much as possible. Alternate tylenol and your meloxicam or motrin as needed and directed for pain. Take the tramadol for pain not relieved with Tylenol or NSAIDs such as motrin or meloxicam. Follow-up with your scheduled appointment with orthopedics on October 31. Return immediately to the emergency department if you develop any worsening or new concerning symptoms. Referrals: Brock Mo MD [ [facility] STAFF PHYSICIAN] - Discharge Data Discharge Date/Time-TO BE ENTERED AT DEPARTURE: 10/24/21 17:24 Discharge Physician: Raya Edmondson Medical Decision Making 26-year-old female with history of longstanding repetitive right knee injuries mostly secondary to sports as a teenager with most recent injury 2 months ago when hit by a dog against her lateral knee causing increased pain mostly in her medial knee presents for persistent ongoing R knee pain for the past 2 months. Patient states she had seen Dr. Mo approximately 4 years ago for this complaint and was diagnosed with a potential meniscal tear and advised that she may need surgery. Review of records did not note any orthopedic notes but revealed that she was seen in the ED approximately 4 years ago and diagnosed with a meniscal tear and referred to orthopedics. She denies any relief with meloxicam prescribed by her PCP recently. She has pain in the R knee with valgus and varus stress, limited ability to test Samantha's test secondary to pain but no obvious clicking noted. No obvious ligamentous laxity. Neurovascularly intact. There is no evidence of trauma or cellulitis. History/presentation does not appear c/w dvt, septic arthritis. Will refer for x-rays. She declined pain medication here. X-rays reviewed and unremarkable. Patient has a knee brace but she states this has not been helping and she is concerned about inability to sleep at night and pain causing her difficulty to ambulate. We will place an Joseph wrap and provide with crutches. We will give 2 tabs of tramadol to go to take before bed to help with sleep over the next couple nights. She is advised to follow-up with her scheduled appointment with orthopedics next week. Usual and customary return precautions given prior to discharge. Medical Records Medical records reviewed: Yes I reviewed the patient's medical records. Imaging Data Radiologic Study: Radiologist's impression: XR KNEE RT 3V AP,LAT,DEMARIO CLINICAL HISTORY: ? R knee pain, r/o fx/effusion. ? TECHNIQUE:? 2D digital imaging was performed. COMPARISON:? CR RIGHT KNEE COMPLETE from 11/13/2017 FINDINGS: There is no evidence of fracture or joint effusion.? Previously described joint effusion seen on x-rays November 2017 no longer seen.? The joint exhibits normal height.? No degenerative changes.? No fractures.? No osteophytes. IMPRESSION: No significant radiographic findings. HPI General Mode of arrival: wheelchair. Date/Time Provider Initiated Documentation: 10/24/21 15:27. Limitations to Documentation: no limitations. Information obtained by: patient. HPI Narrative: Patient is a 26-year-old female with a history of longstanding right knee pain with multiple previous injuries related to sports presents the ED with complaint of worsening right knee pain for the past 2 months. Patient states she saw Dr. Mo in the office 4 years ago and was diagnosed with a possible MCL tear and was advised that she may need surgery. Patient states she has not been able to follow-up again due to busy schedule and taking care of her toddler. She states 2 months ago her father's dog hit the lateral aspect of her right knee which caused strain and pain on the medial aspect. She states ongoing since then she has had right medial and lateral knee pain which is worse when fully extended and with bending. She states she wears a brace mostly throughout the day and at nighttime. She saw her PCP for this complaint recently and was given meloxicam which she has been taking without relief. She denies any new injury in the past few days. She denies any fever, calf pain or redness of the knee. Related Data Home Medications Medication Instructions Recorded Confirmed medroxyprogesterone 150 mg/mL 150 mg IM [id number] #1 ml 12/28/20 10/24/21 intramuscular syringe (Depo-Provera) loratadine 10 mg tablet 10 mg PO DAILY 03/22/21 10/24/21 sertraline 25 mg tablet 50 mg PO DAILY tab 06/13/21 10/24/21 meloxicam 15 mg tablet 15 mg PO DAILY 10/24/21 10/24/21 omeprazole 10 mg capsule,delayed 10 mg PO DAILY 10/24/21 10/24/21 release Previous Rx's Medication Instructions Recorded medroxyprogesterone 150 mg/mL 150 mg IM [id number] #1 ml 12/28/20 intramuscular syringe (Depo-Provera) Allergies Allergy/AdvReac Type Severity Reaction Status Date / Time amoxicillin Allergy hives, Verified 10/24/21 15:23 throat swelling oxycodone Allergy Verified 10/24/21 15:23 Penicillins Allergy hives, Verified 10/24/21 15:23 throat swelling acetaminophen [From Vicodin] AdvReac Severe vomiting Verified 10/24/21 15:23 hydrocodone [From Vicodin] AdvReac Severe vomiting Verified 10/24/21 15:23 Bees Allergy Intermediate Uncoded 10/24/21 15:23 General Stated Complaint: Orthopedic TEJAS: 4 Review of Systems All systems reviewed & are unremarkable except as noted in HPI and below Constitutional Constitutional: Reports as per HPI, Denies chills and Denies fever(s) Eyes Eyes: Denies blurry vision ENT Ears, Nose, Mouth, and Throat: Denies dizziness, Denies sore throat and Denies throat swelling Cardiovascular Cardiovascular: Denies chest pain and Denies dyspnea Respiratory Respiratory: Denies cough and Denies dyspnea Gastrointestinal Gastrointestinal: Denies abdominal pain, Denies diarrhea and Denies vomiting Genitourinary Genitourinary: Denies hematuria and Denies dysuria Musculoskeletal Musculoskeletal: Denies back pain, Denies numbness and Reports other (R knee pain) Integumentary/Breasts Skin/Breast: Denies lesions and Denies rash Neurologic Neurologic: Denies dizziness, Denies localized weakness and Denies numbness Allergic/Immunologic Allergic/Immunologic: Denies throat swelling PFSH All Active Problems (Updated 10/24/21 @ 17:15 by Raya Edmondson DO) Right knee sprain (Acute) Chronic pain of right knee (Acute) Irregular intermenstrual bleeding (Acute) 12/28/20. s/p DepoProvera #1. daily bleeding requiring tampon. Dental caries (Acute) Uses contraception (Acute) Couple until 08/2021 change to Josey. 12/2020 resumed Depo Anxiety (Chronic) Sinus headache (Acute) Anemia (Chronic) History of ovarian cyst (Acute) Anxiety (Chronic) medications in the past, discontinued due to side effects. counseling x 4 years Marijuana smoker (Acute) Tobacco dependence (Acute) Medical History Anxiety medications in the past, discontinued due to side effects. counseling x 4 years Anxiety History of ovarian cyst Marijuana smoker Sinus headache Tobacco dependence Uses contraception Couple until 08/2021 change to Josey. 12/2020 resumed Depo Family History Father Diabetes Hyperlipidemia Grandmother Lung cancer Maternal - Paternal Cousin Diabetes type 1 Paternal Grandfather Diabetes Type 1 Maternal Grandmother Hyperthyroidism Social History (Updated 04/22/21 @ 22:36 by Georgia Gallegos MD) Smoking/Tobacco Use Status: Former Tobacco Use Tobacco: How many years used: 2 Quit status: quit date established Smoking risk assessment performed?: Yes Alcohol Intake: current Alcohol Intake frequency: 0-2 drinks per day Alcohol type: wine Drug use: Occasionally Substance use type: marijuana Details: marijuana, using for nausea in . Reports no longer using. Household members: children and other Details: Son Jarred. Shares custody with his father Ibrahima 2x/week Number of Children: 1 current occupation: not working so she can be with her son. Do you feel safe at home: Yes Do you feel safe in your relationship?: Yes Female Reproductive History Menstrual control method: condoms History History 3 Para 1 Hx # Term Pregnancies 1 Multiple births 0 Hx # Pregnancies 0 Ectopic pregnancies 0 AB induced 2 Hx Number of Living Children 1 AB spontaneous 0 Past Pregnancies Del. Date GA/Weeks # Outcome Route Wgt Sex Labor Lgth Anesthesia Location Prov Complic 04/02/20 No Successful vaginal 3316.894 g Male 21 hours, per patient regional other Sam Laurent Delivery Date: 04/02/20 Last Updated by: Georgia Gallegos M.D. Pt received epidural, with pitocin to augment labor. Jarred. Intact perineum. Exam Const General: cooperative, healthy appearing and no acute distress Orientation: alert, awake and oriented x3 HENMT Head: normal to inspection Mouth: oral mucosae normal Eyes General: appearance normal, both eyes and all related structures Neck Neck: normal visual inspection Resp Effort & Inspection: normal respiratory effort and able to speak in complete sentences Cardio Rate: regular rate Skin General skin exam: no rashes or lesions noted Neuro General: patient alert, patient awake and patient oriented x3 Motor: muscle tone normal throughout Extrem Other: Pain in right knee with valgus and varus stress. Negative anterior/posterior drawer test. Pain with Samantha's test b/l but no obvious click noted and test limited due to pain. There does appears to be some clicking in the knee noted with flexion and extension. There is no obvious ligamentous laxity noted on exam. No tenderness to palpation to right calf. There is no edema or erythema noted to the right knee. Right DP/PT pulses intact. Psych Appearance: grossly normal Affect: normal affect Course Vital Signs Vital signs: Vital Signs Pulse 89 10/24/21 15:15 Respiratory Rate 16 10/24/21 15:15 Blood Pressure 134/85 10/24/21 15:15 Pulse Oximetry 99 10/24/21 15:15 Pulse 89 10/24/21 15:15 Respiratory Rate 16 10/24/21 15:15 Blood Pressure 134/85 10/24/21 15:15 Blood Pressure Position Sitting 10/24/21 15:15 Pulse Oximetry 99 10/24/21 15:15 Oxygen Delivery Method Room Air 10/24/21 15:15 Oxygen Flow Rate 0 10/24/21 15:15 Pain Level 8 10/24/21 15:15
== END 2021-10-24 17:24 | disposition home or self-care (01) ==
PROVIDERS: Emergency Provider Physician Assistant; PCP Nurse Practitioner Family
DX: S83.8X1A Sprain of other specified parts of right knee, initial encounter (principal); W54.1XXA Struck by dog, initial encounter; G89.18 Other acute postprocedural pain
CPT/HCPCS: 73562; 81025; 99283

== ENCOUNTER 2021-10-31 09:26 | Outpatient (CLI) | payer MEDICAID, SELFPAY ==
--- NOTE | 2021-10-31 09:15 | DI.RAD_ITS ---
Exam(s) XR KNEES MERCHANT ONLY EXAM: XR KNEES MERCHANT ONLY INDICATION: pain. COMPARISON: CR XR KNEE RT 3V AP,LAT,DEMARIO from 10/24/2021 TECHNIQUE: 2D digital imaging was performed. FINDINGS: Single Merchant view. Patellofemoral joint space is well maintained. No periarticular spurring. No evidence of prepatellar bursitis. DATA REPOSITORY: RADIATION DOSE DELIVERED:
== END 2021-10-31 09:27 | disposition home or self-care (01) ==
LOC: DIORS 09:26
PROVIDERS: PCP Nurse Practitioner Family; Referring Provider Nurse Practitioner Family; Visit Provider Physician Assistant Surgical
DX: M25.561 Pain in right knee; S83.094A Other dislocation of right patella, initial encounter; X58.XXXA Exposure to other specified factors, initial encounter
CPT/HCPCS: 73565

== ENCOUNTER 2021-11-14 00:48 | Outpatient (CLI) | payer MEDICAID, SELFPAY ==
--- NOTE | 2021-11-14 06:30 | DI.MRI_ITS ---
Exam(s) MR LOWER JOINT RT WO EXAM: MR LOWER JOINT RT WO CLINICAL HISTORY: pain,sprain,closed dislocation rt patella,m25.561,s83.91xa,s83.004a. TECHNIQUE: Multiplanar multisequence MRI was performed. COMPARISON: CR RIGHT KNEE COMPLETE from 11/13/2017 CR XR KNEE RT 3V AP,LAT,DEMARIO from 10/24/2021 CR XR KNEES MERCHANT ONLY from 10/31/2021 FINDINGS: BONES: There is no fracture or contusion pattern. JOINTS: Articular cartilage is unremarkable. Tiny effusion is present. TENDONS: Extensor mechanism: Unremarkable. Medial retinaculum: Unremarkable. Lateral retinaculum: Unremarkable. Popliteus: Unremarkable. MUSCLES: Unremarkable. MENISCI: The medial meniscus is unremarkable. The lateral meniscus is unremarkable. SOFT TISSUES: Unremarkable. LIGAMENTS: Anterior Cruciate: Question of mild edema. No evidence of focal tear. Posterior Cruciate: Unremarkable. Medial Collateral:Unremarkable. Lateral Collateral: Unremarkable. OTHER: Mild lateral patellar tilt and lateral deviation, IMPRESSION: Question of ACL sprain. Mild lateral patellar deviation in lateral patellar tilt. No cartilage defect. Retinacula appear in tact. DATA REPOSITORY:
== END 2021-11-14 01:08 ==
PROVIDERS: PCP Nurse Practitioner Family; Visit Provider Student in an Organized Health Care Education/Training Program
DX: M25.561 Pain in right knee (principal); S83.8X1A Sprain of other specified parts of right knee, initial encounter; M25.461 Effusion, right knee; M22.8X1 Other disorders of patella, right knee; G89.29 Other chronic pain
CPT/HCPCS: 73721

== ENCOUNTER 2022-10-27 10:12 | Outpatient (REF) | payer MEDICAID, SELFPAY ==
[2022-10-27 10:52] LABS: Abs Immature Grans 0.01 10^3/uL (0.0-0.06); Absolute Basophil Count 0.04 10^3/uL (0.0-0.2); Absolute Eosinophil Count 0.23 10^3/uL (0.0-0.7); Absolute Lymphocyte Count 1.91 10^3/uL (1.2-3.4); Absolute Monocyte Count 0.41 10^3/uL (0.1-0.8); Absolute Neutrophil Count 3.42 10^3/uL (1.2-6.7); Basophils % 0.7; Eosinophils % 3.8; HCT 41.3 % (36.0-46.0); Immature Grans % 0.2; Lymphocytes % 31.7; MCH 30.7 pg (27.0-33.0); MCHC 33.9 % (32.0-36.0); MCV 91 fL (80-95); MPV 9.5 fL (8.0-11.0); Monocytes % 6.8; Neutrophils % 56.8; Platelet Count 420 10^3/uL (130-400); RBC 4.56 10^6/uL (3.93-5.22); RDW 11.7 % (11.7-14.6); RDW-SD 38.8 fL; WBC 6.02 10^3/uL (4.4-10.8)
[2022-10-27 11:29] LABS: ALT 11 U/L (14-59); AST 12 U/L (15-37); Alkaline Phosphatase 79 U/L (46-116); Anion Gap 10.2 mmol/L (3-11); BUN 8 mg/dL (7-18); Bilirubin, Total 0.4 mg/dL (0.2-1.0); CO2 24.8 mmol/L (21.0-32.0); CREATININE 0.8 mg/dL (0.55-1.02); Calcium 9.4 mg/dL (8.5-10.1); Chloride 106 mmol/L (98-107); Estimated GFR 104.15 (mL/min/1.73m2); Ferritin 20 ng/mL (8-252); Glucose 81 mg/dL (74-106); Potassium 3.7 mmol/L (3.5-5.1); Sodium 141 mmol/L (136-145); TSH (W/Ref FT4) 1.28 uIU/mL (0.36-3.74); Total Protein 7.6 g/dL (6.4-8.2); Vitamin B12 325 pg/mL (193-986)
[2022-10-27 11:42] LABS: Iron 86 ug/dL (50-170); Total Iron Binding Capacity 373 ug/dL (250-450); Transferrin Sat 23 % (15-50)
== END 2022-10-27 10:13 | disposition home or self-care (01) ==
LOC: LBN 10:12
PROVIDERS: PCP Nurse Practitioner Family; Visit Provider Surgery
DX: D64.9 Anemia, unspecified (principal); F12.90 Cannabis use, unspecified, uncomplicated; F17.200 Nicotine dependence, unspecified, uncomplicated; F41.9 Anxiety disorder, unspecified; K21.9 Gastro-esophageal reflux disease without esophagitis; N92.1 Excessive and frequent menstruation with irregular cycle; R10.13 Epigastric pain; R10.2 Pelvic and perineal pain; R42 Dizziness and giddiness; R53.1 Weakness; R53.83 Other fatigue; Z78.9 Other specified health status; Z83.49 Family history of other endocrine, nutritional and metabolic diseases; Z87.11 Personal history of peptic ulcer disease; Z87.42 Personal history of other diseases of the female genital tract
CPT/HCPCS: 80053; 82607; 82728; 82746; 83540; 83550; 84443; 85025

== ENCOUNTER 2022-11-01 01:51 | Outpatient (CLI) | payer MEDICAID, SELFPAY ==
--- NOTE | 2022-11-01 07:30 | DI.US_ITS ---
Exam(s) US ABDOMEN EXAM: US ABDOMEN CLINICAL HISTORY: epigastri pain/nausea,? GALLSTONES,R11.0,R10.13,K21.9 TECHNIQUE: Ultrasound abdomen performed using standard protocol. COMPARISON: No exams were available for comparison FINDINGS: ABDOMINAL AORTA AND IVC: Visualized portions normal caliber. PANCREAS: Normal where visualized. LIVER: Normal. Hepatopedal flow in the Portal Vein. GALLBLADDER:No evidence of cholelithiasis. No evidence of wall thickening. No pericholecystic fluid i dentified. BILIARY SYSTEM: Common bile duct measures < 7 mm. No intrahepatic biliary ductal dilation. YADAV'S SIGN: Negative. KIDNEYS: Kidneys are symmetric in size. No evidence of renal calculi. No evidence of hydronephrosis. No renal mass or cyst identified. SPLEEN: Not enlarged. ASCITES: None seen. IMPRESSION: Normal sonographic appearance of the upper abdomen. DATA REPOSITORY:
== END 2022-11-01 02:11 ==
PROVIDERS: PCP Nurse Practitioner Family; Visit Provider Surgery
DX: R10.13 Epigastric pain (principal); R11.0 Nausea; K21.9 Gastro-esophageal reflux disease without esophagitis; D64.9 Anemia, unspecified; Z87.11 Personal history of peptic ulcer disease
CPT/HCPCS: 76700

== ENCOUNTER → 2023-12-13 05:10 | Outpatient (CLI) | payer MEDICAID, SELFPAY ==
--- NOTE | 2023-12-13 | DI.US_ITS ---
Exam(s) US SOFT TISS ABD WALL/LOW BACK EXAM: US SOFT TISS ABD WALL/LOW BACK CLINICAL HISTORY: mass of skin of back/trunk, R22.2, eval palpable mass. TECHNIQUE: Ultrasound was performed using standard protocol. COMPARISON: No exams were available for comparison FINDINGS: Sonographic assessment utilizing grayscale and color Doppler imaging was performed and targeted to th e area of clinical concern. No cystic or solid mass is seen sonographically. IMPRESSION: No cystic or solid mass is seen in the area of palpable concern. DATA REPOSITORY:
== END ==
PROVIDERS: PCP Nurse Practitioner Family; Visit Provider Nurse Practitioner Family
DX: R22.2 Localized swelling, mass and lump, trunk (principal)
CPT/HCPCS: 76705

== ENCOUNTER 2024-03-20 19:40 | Outpatient (REF) | payer MEDICAID, SELFPAY ==
--- OUTSIDE RECORDS SUMMARY | 2024-03-20 19:42 | XMS_ITS | Clinical Summary ---
Author Organization Formerly [facility], [facility] Address [facility] [place] [address] Care Team Providers Care Director Business Name Role Phone Ling Kumar MD Primary Care Provider [phone] Allergies No known active allergies Social History Tobacco Use Types Packs/Day Years Used Date Smoking Tobacco: Never Assessed Sex and Gender Information Value Date Recorded Sex Assigned at Not on file Gender Identity Not on file Sexual Orientation Not on file Plan of Treatment Health Maintenance Due Date Last Done Comments HIV screen 2014 Hepatitis C Screening 2014 Hepatitis B vaccine (0-59 yrs) (1) 2015 Tdap adult 2015 Tetanus vaccine 2015 PAP Smear 2017 Covid-19 Vaccine ( season) 2023 Influenza (Flu) vaccine (1 o f 1 - Influenza standard series) 05/04/2024 Care Teams Director Business Relationship Specialty Start Date End Date Ling Kumar MD [facility] CHILD [facility] [place] [address] PCP - General 07/26/10
--- OUTSIDE RECORDS SUMMARY | 2024-03-20 19:42 | XMS_ITS | Encounter Summary ---
Author Organization [facility] [place] [address] Care Team Providers Care Chain Carrier Name Role Phone Ling Kumar MD Primary Care Provider Encounter Details Date Type Department Care Team (Late st Contact Info) Description 04/27/2021 Telephone [place] [address] Katey Torre Social History Tobacco Use Types Packs/Day Years Used Date Smoking Tobacco: Never Assessed Sex and Gender Information Value Date Recorded Sex Assigned at Not on file Gender Identity Not on file Sexual Orientation Not on file documented as of this encounter Miscellaneous Notes * Telephone Encounter - Katey Torre - 04/27/2021 10:47 AM EDTSummary: Referral Images from the original note were not included. Conversation (Newest Message First) ?? Tried contacting patient 2 times- the mobile number kept saying I'm sorry but the call can not go through We have not received an OMFS referral for this patient. ?? 04/20/21 5:12 PM Yulia Kenny routed this conversation to Me Yulia Kenny ?? 04/20/21 5:11 PM Note Patient called wanting to know if her referral for OMFS had been reviewed and if she could schedule. I advised that I saw no referral and she stated that she was told last week that we got the referral and fax and that it just needed to be loaded and reviewed. I advised i would send a message to the OMFS batting machine operator insulation to look into it and that we would be in touch. Patient understands and will await call. She does want it noted that her tooth is causing her ear to be very painful and her hearing seems to be affected too. documented in this encounter Plan of Treatment Not on file documented as of this encounter Visit Diagnoses Not on filedocumented in this encounter Care Teams Chain Carrier Relationship Specialty Start Date End Date Ling Kumar MD [facility] CHILD ADVOCACY & [place] [address] PCP - General 07/26/10 documented as of this encounter
--- OUTSIDE RECORDS SUMMARY | 2024-03-20 19:42 | XMS_ITS | Encounter Summary ---
Author Organization [facility] [place] [address] Care Team Providers Care Sales Compensation Analyst Name Role Phone Ling Kumar MD Primary Care Provider [phone] Encounter Details Date Type Department Care Team (Late st Contact Info) Description 04/20/2021 Telephone [place] [phone] Yulia Kenny Social History Tobacco Use Types Packs/Day Years Used Date Smoking Tobacco: Never Assessed Sex and Gender Information Value Date Recorded Sex Assigned at Not on file Gender Identity Not on file Sexual Orientation Not on file documented as of this encounter Miscellaneous Notes * Telephone Encounter - Yulia Kenny - 04/20/2021 5:07 PM EDT Patient called wanting to know if her referral for OMFS had been reviewed and if she could schedule. I advised that I saw no referral and she stated that she was told last week that we got the referral and fax and that it just needed to be loaded and reviewed. I advised i would send a message to the OMFS automotive engineering teacher to look into it and that we [...] on filedocumented in this encounter Care Teams Sales Compensation Analyst Relationship Specialty Start Date End Date Ling Kumar MD [facility] CHILD [facility]VOCACY & [place] [address] (work) PCP - General 07/26/10 documented as of this encounter
== END 2024-03-20 19:41 | disposition home or self-care (01) ==
LOC: LBN 19:40
PROVIDERS: PCP Nurse Practitioner Family; Visit Provider Physician Assistant
DX: J02.9 Acute pharyngitis, unspecified (principal)
CPT/HCPCS: 87070

== ENCOUNTER 2024-04-18 10:11 | Outpatient (REF) | payer MEDICAID, SELFPAY ==
[2024-04-21 12:07] LABS: Chlamydia Result Negative (Negative); GC Result Negative (Negative)
== END 2024-04-18 10:12 | disposition home or self-care (01) ==
LOC: LBN 10:11
PROVIDERS: PCP Nurse Practitioner Family; Visit Provider Obstetrics & Gynecology
DX: Z11.3 Encounter for screening for infections with a predominantly sexual mode of transmission (principal); Z86.19 Personal history of other infectious and parasitic diseases; Z78.9 Other specified health status
CPT/HCPCS: 87491; 87591

== ENCOUNTER 2024-05-08 20:58 | Outpatient (REF) | payer MEDICAID, SELFPAY ==
[2024-05-08 19:33] LABS: HCT 41.8 % (36.0-46.0); HGB 14.1 g/dL (11.2-15.7); MCHC 33.7 % (32.0-36.0); MCV 92 fL (80-95); MPV 9.5 fL (8.0-11.0); Platelet Count 406 10^3/uL (130-400); RBC 4.55 10^6/uL (3.93-5.22); RDW 11.7 % (11.7-14.6); RDW-SD 39.6 fL; WBC 7.09 10^3/uL (4.4-10.8)
[2024-05-08 20:43] LABS: ALT 18 U/L (14-59); AST 14 U/L (15-37); Albumin 4.1 g/dL (3.4-5.0); Alkaline Phosphatase 67 U/L (46-116); Anion Gap 9.4 mmol/L (3-11); BUN 7 mg/dL (7-18); Bilirubin, Total 0.47 mg/dL (0.2-1.0); CO2 26.6 mmol/L (21.0-32.0); CREATININE 0.8 mg/dL (0.55-1.02); Calcium 9.5 mg/dL (8.5-10.1); Chloride 103 mmol/L (98-107); Ferritin 18 ng/mL (8-252); Glucose 112 mg/dL (74-106); Sodium 139 mmol/L (136-145); TSH (W/Ref FT4) 1.92 uIU/mL (0.36-3.74); Total Protein 7.7 g/dL (6.4-8.2); Vitamin B12 211 pg/mL (193-986)
[2024-05-08 20:56] LABS: Iron 165 ug/dL (50-170); Total Iron Binding Capacity 376 ug/dL (250-450); Transferrin Sat 44 % (15-50)
--- OUTSIDE RECORDS SUMMARY | 2024-05-08 21:00 | XMS_ITS | Encounter Summary ---
Author Organization [facility] [place] [address] Care Team Providers Care Hand Nailer Name Role Phone Ling Kumar MD Primary Care Provider Encounter Details Date Type Department Care Team (Late st Contact Info) Description 04/27/2021 Telephone [place] [address] Katey Torre Social History Tobacco Use Types [...] would send a message to the OMFS window glass installer to look into it and that we [...] on filedocumented in this encounter Care Teams Hand Nailer Relationship Specialty Start Date End Date Ling Kumar MD [facility] CHILD ADVOCACY [place] [address] PCP - General 07/26/10 documented as of this encounter
--- OUTSIDE RECORDS SUMMARY | 2024-05-08 21:00 | XMS_ITS | Encounter Summary ---
Author Organization [facility] [place] [address] Care Team Providers Care Food Supervisor Name Role Phone Ling Kumar MD Primary Care Provider [phone] Encounter Details Date Type Department Care Team (Late st Contact Info) Description 04/20/2021 Telephone [place] [phone] Yulia Kenny Social History Tobacco Use Types [...] would send a message to the OMFS utility tech to look into it and that we [...] on filedocumented in this encounter Care Teams Food Supervisor Relationship Specialty Start Date End Date Ling Kumar MD [facility] CHILD ADVOCACY [place] [address] (work) PCP - General 07/26/10 documented as of this encounter
--- OUTSIDE RECORDS SUMMARY | 2024-05-08 21:00 | XMS_ITS | Clinical Summary ---
Author Organization [facility] Address [facility] [place] [address] Care Team Providers Care Network Admin Name Role Phone Ling Kumar MD Primary Care Provider [phone] Allergies No known active allergies Social History [...] - Influenza standard series) 05/04/2024 Care Teams Network Admin Relationship Specialty Start Date End Date Ling Kumar MD [facility] CHILD ADVOC[facility]Y [place] [address] PCP - General 07/26/10
== END 2024-05-08 20:59 | disposition home or self-care (01) ==
LOC: NCHCN 20:58
PROVIDERS: PCP Nurse Practitioner Family; Visit Provider Nurse Practitioner Family
DX: R00.2 Palpitations (principal)
CPT/HCPCS: 80053; 85027; 82607; 82728; 83540; 83550; 84443

== ENCOUNTER 2025-05-12 17:51 | Outpatient (REF) | payer MEDICAID, SELFPAY ==
--- NOTE | 2025-05-12 16:15 | PAPFT_PTH ---
PATIENT: Lily Bennett LOC: [facility]#:[id number] AGE/SX: 29/F ROOM: RE05/12/[address]: Kaleigh Cotton MD : 1995 BED: DIS: 05/12/2025 SPEC #: [id number] RECD: 05/12/25 18:00 STATUS: NIURKA REDiana #: [id number] SHANTI: 05/12/25 16:[address]: Kaleigh Cotton DEPT: [facility] Cytology RECD BY: Rica Alvarez ENTERED: 05/12/25 18:01 SP TYPE: PAPFT OTHR DR: MARY KEN NP Tissues: 1 - CX/ENDOCX FOR PAP SMEARS Procedures: PAP THIN PREP/[facility] Screening Comments: [id number]
== END 2025-05-12 17:52 | disposition home or self-care (01) ==
LOC: NCHCN 17:51
PROVIDERS: PCP Nurse Practitioner Family; Visit Provider Obstetrics & Gynecology
DX: Z12.4 Encounter for screening for malignant neoplasm of cervix (principal)
CPT/HCPCS: 88142